=== PATIENT | female | born 1955 | race Caucasian/White ===

== ENCOUNTER 2021-10-07 09:40 | Outpatient (RCR) | payer MEDICARE, SELFPAY ==
--- NOTE | 2021-10-07 10:45 | PTOPEVAL ---
PHYSICAL THERAPY EVALUATION AND PLAN OF CARE Thank you for referring Jeannine Mota to [facility].? The patient is scheduled to be seen for therapy? 1x/week for 4 weeks with consideration to transportation needs. Please review, sign, date and return this plan of care CARLOS. I agree with and certify that the following plan of care is medically necessary. Referring Physician Date Attending Provider: Alissa Juarez, PA Diagnosis right knee pain Onset 2months Subjective Information States that she fell after Query Text:As Reported By Patient/ getting off the toilet and she Family thinks she twisted it. It has been hurting and cannot straighten it every since. 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 Lower Extremity Muscle Strength Testing Knee Strength Right Knee Flexion Strength 4+ Good + Knee Extension Strength 4 Good Knee Strength Comments fair quad set that does increase with retraining, cues , and overflow Palpation Assessment Palpation Palpation severely hypomobile patellar mobilizations Special Tests-Lower Extremity Knee Special Tests Jeromy's Positive Right Knee Special Tests Comments possible locking syndrome to right knee Extremity Circumference Assessment Circumference Assessment Location Right Body Part Knee Site Descriptor ([place]) suprapatella Circumference (cm) 47 Noninvolved Side Circumference (cm) 46 Gait Assessment Gait Pattern Assessment Gait Pattern Antalgic Gait Gait Pattern Observed Excessive Knee Flex - Right, Uneven [place] Other Gait Observations no heel strike or toe off with 30deg right knee flexion throughout gait pattern PT Clinical Summary Jeannine is a 65 yo female presenting to outpatient physical therapy with subacute right knee pain with decreased ROM. She presents lacking 30deg of right knee flexion with impaired gait pattern. She dem
--- NOTE | 2021-10-18 10:29 | PCPTNOTE ---
Patient no showed to appointment this date. Called and spoke with patient who states she thought her appointment was next Thursday on 10/25/21. Confirmed next appointment for 10/23/21.
--- NOTE | 2021-10-23 10:40 | PCPTNOTE ---
Patient no showed to appointment this date. Called and left voicemail. This is patient's second no show.
--- NOTE | 2021-10-30 11:18 | PCPTNOTE ---
Patient did not show up for scheduled appointment this date. Called and had to leave message.
--- NOTE | 2021-11-06 10:40 | PCPTNOTE ---
pt did not show for today's reevaluation;
--- NOTE | 2021-11-06 14:37 | PCPTNOTE ---
PHYSICAL THERAPY DISCHARGE 11-06-21 Attending Provider: CHEKO Gant Patient:Jeannine Mota Date of :1955 Patient has not returned for any further treatments since the initial evaluation on 10/07/2021, therefore she will be discharged at this time. The goals were not addressed. Thank you for referring this patient to [facility]. Please review, sign, date and return this discharge summary CARLOS. I have been updated about the patient's current status and I agree with discharge from the above service at this time. Referring Physician Date
== END 2021-11-07 08:26 | disposition home or self-care (01) ==
LOC: ANHPT 09:40
PROVIDERS: PCP Physician Assistant; Referring Provider Physician Assistant; Visit Provider Physician Assistant
DX: M25.561 Pain in right knee (principal)
CPT/HCPCS: 97112; 97162; 99199